=== PATIENT | female | born 1980 | race Caucasian/White ===

== ENCOUNTER 2016-08-07 14:50 | Observation (INO) ==
[2016-08-07] MEDS ORDERED: 0.9 % Sodium Chloride 1,000 ML IVC ONE ×2 (15:06→18:10)
[2016-08-07 15:17] LABS: Hematocrit 34.6 % (35.3-44.9); Hemoglobin 11.4 g/dL (11.5-15.4)
--- NOTE | 2016-08-07 16:45 | Emergency Department Note ---
Disposition Clinical Impression: Vaginal bleeding, Incomplete Disposition: Admitted As Inpatient Condition: Good Referrals: NO,PCP [Primary Care Provider] - Forms: ED Satisfaction Letter Time of Disposition: 18:44 HPI - General Chief complaint: ED Vaginal Bleeding Stated complaint: Possible miscarriage/bleeding, weakness Time Seen by Provider: 08/07/16 15:00 Source: patient Limitations: no limitations Nursing Notes Reviewed: Yes Vital Signs Reviewed: Yes - History of Present Illness HPI Narrative: Patient presents emergency room with complaint of vaginal bleeding and concern for possible spontaneous miscarriage. She was seen here 2 days ago and evaluated for spotting she had laboratory workup done at that time was told that she was a threatened miscarriage at that point. She has never had a miscarriage in the past. She denies any other symptoms or complaints at this time. 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 Location: pelvis Pain Severity: none Pain Scale: 1 Quality: cramping Improves with: none Worsens with: none Associated symptoms: Reports: denies other symptoms Vaginal discharge: bloody Vaginal bleeding: heavy, clots Confirmation of LMP: Yes (10 weeks ago) : yes Number of weeks : 10 OB History - Current : no complications - Related Data Previous Rx's Medication Instructions Recorded Nitrofurantoin (BID) [Macrobid] 100 mg PO BID #14 capsule 08/06/16 Allergies Allergy/AdvReac Type Severity Reaction Status Date / Time No Known Allergies Allergy Verified 08/05/16 22:58 All systems ED: reviewed and negative except as stated. Constitutional: Denies: fever, chills Cardiovascular: Denies: chest pain, palpitations Gastrointestinal: Denies: abdominal pain, nausea Genitourinary: Denies: urgency, dysuria PMH - Past Medical History CURB BUILDER history: Reports: No CURB BUILDER History LMP comments: - Social History Smoking Status: Never smoker Alcohol use: Reports: none Drug use: Reports: none Physical Exam - General Limitations: no limitations General appearance: alert - Cardiovascular Cardiovascular exam: Present: regular rate, normal rhythm, normal heart sounds - Abdominal Exam Abdominal exam: Present: soft, Non-Tender, normal bowel sounds. Absent: tenderness, distention, guarding, rebound, rigidity, Merrill's sign, Rovsing's sign, tenderness at McBurney's Point - Extremities Exam Extremities exam: Present: normal inspection, full ROM - Back Exam Back exam: Present: normal inspection, full ROM - Neurological Exam Neurological exam: Present: alert, oriented X3, CN II-XII intact, normal gait - Psychiatric Psychiatric exam: Present: normal affect, normal mood - Skin Skin exam: Present: warm, dry, intact, normal color Course Course Narrative: Patient seen and examined the time of arrival. See history of present illness. History and repeat evaluation discussed. Patient was seen here several days ago for evaluation of vaginal spotting. She is currently 10 weeks by last menstrual period. She has not had an ultrasound confirmation. She is currently at 007 prior to today. Patient is describing vaginal bleeding this morning with conservative spontaneous miscarriage. Denies any other symptoms or complaints. Denies recent fever chills nausea vomiting or diarrhea. Denies chest measures with irregular rhythm change. Otherwise patient has no other issues prior to today's events. Physical exam is benign lungs are clear heart is regular abdomen is soft. She was hypotensive initial triage repeat blood pressure was 102/64. Fluids and IV access to be obtained. Type and Rh was completed on last evaluation she is a positive. H&H and the serum quantitative evaluation to be completed. Ultrasound ordered for formal study to look for retained products of conception. Pelvic examination be completed urine was completed last time is showing no signs of acute infection disposition patient treatment course evaluation. Patient follows up with Dr. Mauricio as an outpatient has no other symptoms or complaints at this time - Reevaluation(s) Reevaluation #1: Patient to ultrasound at this time. Time: 17:10 Reevaluation #2: Repeat evaluation after ultrasound was completed. Patient's blood pressure and heart rate are concerning. Heart rate is 113 and blood pressure is 89/52. Ultrasound was read as possible retained products of conception or intrauterine clot. Patient is placed onto the oncologist at [facility] physician Dr. Arias. We will discuss the findings with him and recommendation for admission will be reviewed. My concern is the patient will continue to bleed and decompensated. Consultation placed this time. Second bolus of fluids ordered. Patient otherwise has no acute pathology at this time Time: 18:19 Reevaluation #3: Patient was reviewed with the on-call obstetrics physician Dr. Arias. He agreed with my concern about the hypotension and vaginal bleeding in the indeterminate ultrasound. He will admit the patient to their service and obturator this time. Otherwise he had no other recommendations. Patient family were both informed and they are comfortable with this plan. Admission process to be completed. We will continue to monitor here in the emergency room and admission process is completed. Patient to be admitted for what appears to be vaginal bleeding with what appears to be incomplete . Time: 18:43 Vital Signs Temperature 98.4 F 08/07/16 14:54 Pulse Rate 119 08/07/16 14:54 Respiratory Rate 18 08/07/16 14:54 Blood Pressure 74/59 08/07/16 14:54 O2 Sat by Pulse Oximetry 99 08/07/16 14:54 Temperature 98.4 F 08/07/16 14:54 Pulse Rate 89 08/07/16 16:58 Respiratory Rate 16 08/07/16 16:58 Blood Pressure 103/59 08/07/16 16:58 O2 Sat by Pulse Oximetry 98 08/07/16 16:58 OB/Uterine Contractions - MDM Narrative Medical decision making narrative: Vaginal bleeding, spontaneous miscarriage - Medical Records Medical records reviewed: Yes I reviewed the patient's medical records. - Lab Data Lab results reviewed: Yes I reviewed the patient's lab results. Result diagrams: 08/07/16 15:09 Lab Results 08/07/16 08/07/16 Range/Units 15:09 15:09 Hgb 11.4 L (11.5-15.4) g/dL Hct 34.6 L (35.3-44.9) % Beta HCG, Quant 2200 H (0-4) mIU/ml - Radiology Data Radiology results reviewed: Yes I reviewed the patient's radiology results. Ultrasound reviewed showing left-sided ovarian cysts, there is dilation of the uterus with what appears to be either retained products of conception or a large clot in the dependent aspect of the uterus - EKG Data EKG attestation: Yes I reviewed and interpreted this EKG. EKG shows normal: sinus rhythm, axis, intervals, QRS complexes, ST-T waves Rate: normal Rhythm: NSR [place]/QRS: normal When compared to previous EKG there are: previous EKG unavailable Interpretation: normal EKG Attestation Statement - Attestation Attestation: I personally interviewed and examined this patient and my medical decision- making was reviewed with the ED Resident Physician, Dr. Malave. I agree with the documented findings, disposition and treatment plan as described except to the extent set forth below. Patient is a 35-year-old white female, A0 who presents to the emergency department today with complaints of heavy vaginal bleeding at home earlier this afternoon. Patient was evaluated previously in the ED for vaginal spotting and had laboratory evaluation done and was sent home with threatened AB instructions. Patient presents with some mild lower abdominal cramping worse in the left lower quadrant. Patient states prior to arrival she passed a large amount of blood at home but feels like the bleeding has slowed considerably on arrival to the ED. Patient's initial vital signs in triage showed her to be tachycardic and hypotensive she was brought directly back to room IV saline well was established and cardiac care nurse and pulse ox an IV fluids were started. Upon recheck of her blood pressure in the ED at the time fluids were initiated patient's systolic was 109. Labs were drawn and sent. I agree with physical exam findings as documented patient was then sent for pelvic ultrasound to rule out retained products of conception versus ectopic . Repeat Quant today is 2200 which is a drop from her prior hCG levels. Patient does not require RhoGAM. Following fluid administration and improved hemodynamic status patient was taken to ultrasound in imaging is pending at this time. Imaging shows questionable products of conception remain in the uterus. Patient being started on second fluid liter bolus, no heavy bleeding at time of pelvic exam the patient remains hypotensive but improved from arrival. Discussed case with Dr. Arias in [employer] who agreed to admit the patient overnight for continued observation and repeat H&H and possible D&C. Patient received an second fluid liter bolus and will continue to monitor vitals closely.
[2016-08-07 19:58] LABS: Basophils # 0.1 K/mcL (0.0-0.2); Basophils % 0.5 %; Eosinophils % 0.2 %; Hematocrit 26.3 % (35.3-44.9); Hemoglobin 8.5 g/dL (11.5-15.4); Immature Granulocytes % 0.7 % (0-4); Lymphocytes # 1.6 K/mcL (0.6-4.6); Lymphocytes % 14.1 %; Mean Corpuscular HGB Conc 32.3 g/dL (31.6-35.5); Mean Corpuscular Hemoglobin 28.2 pg (28.0-33.3); Mean Corpuscular Volume 87.4 fL (83.0-100.0); Monocytes # 0.6 K/mcL (0.0-1.3); Monocytes % 4.8 %; Neutrophils # 9.2 K/mcL (1.6-8.9); Platelet Count 263 K/mcL (140-400); Red Blood Count 3.01 M/mcL (3.82-4.97); Red Cell Distribution Width 12.4 % (11.5-14.5); Segmented Neutrophils % 79.7 %
[2016-08-07 20:03] LABS: INR 1.3; Prothrombin Time 14.6 Seconds (9.4-12.1)
[2016-08-07 20:06] LABS: Activated Partial Thrombo Time 25.3 Seconds (26.0-36.0)
[2016-08-07 20:13] LABS: BUN/Creatinine Ratio 19 (6-26); Blood Urea Nitrogen 11 mg/dL (7-20); Carbon Dioxide 21 mEq/L (19-29); Chloride 112 mEq/L (98-109); Glucose 116 mg/dL (70-99); Osmolality,Calculated 288 (280-300); Potassium 3.7 mEq/L (3.5-4.5); Sodium 139 mEq/L (136-145); eGFR For African Americans > 60 (> 60); eGFR For Non-African Americans > 60 (> 60)
[2016-08-07 20:20] LABS: Calcium 7.6 mg/dL (8.6-10.8)
--- NOTE | 2016-08-07 20:31 | OB/GYN History & Physical ---
Date of Encounter: 08/07/16 Time of Encounter: 20:29 Assessment and Plan (1) Anemia Current visit: Yes Status: Acute Risk and benefits of vacuum D&E were discussed. We will proceed with transfusion. Qualifiers: Anemia type: other cause Other causes of anemia: acute posthemorrhagic Qualified Code(s): D62 - Acute posthemorrhagic anemia (2) Incomplete Current visit: Yes Status: Acute Risks and benefits of vacuum D&E were discussed. (3) Vaginal bleeding Current visit: Yes Status: Acute History of Present Illness Chief complaint: Vaginal bleeding HPI: Ms. Jean is a 35 year old female 8 para 6 white female who is admitted through the emergency room with vaginal bleeding and an unstable hemoglobin. Her abdomen ultrasound shows incomplete miscarriage. Her hemoglobin was dropped 5 g of the last 6 hours. Risk and benefits of vacuum D& E were discussed. Past Med Surg Social Fam HX - Past Medical History Medical history: non-contributory Psychiatric history: no psych history - Social History Smoking Status: Never smoker Smokeless Tobacco Status: No Alcohol use: none Drug use: none Obstetrical History - Pregnancies : 8 Para: 6 Term: 1 Medications and Allergies Nitrofurantoin (BID) [Macrobid] 100 mg PO BID #14 capsule 08/06/16 [Rx] Allergies No Known Allergies Allergy (Verified 08/05/16 22:58) Review of System OB All systems PM: reviewed and no additional remarkable complaints except as stated - Genitourinary Genitourinary: amenorrhea - Menstruation Menstruation: amenorrhea Exam - Vital Signs Vital signs: Initial Vital Signs Temp Pulse Resp BP Pulse Ox 98.4 F 119 18 74/59 99 08/07/16 14:54 08/07/16 14:54 08/07/16 14:54 08/07/16 14:54 08/07/16 14:54 - Constitutional Constitutional: well developed, well nourished - HEENT HEENT: Normocephaly - Neck Neck exam: full ROM - Lungs Respiratory exam: CTAB - Cardiovascular Cardiovascular exam: RRR - Extremities Extremities exam: full ROM Deep Tendon Reflex Grade: 2+ Normal - Vulva Vulva: bilateral: normal - Comments Comments: Per emergency room physician, large amount of vaginal bleeding and pooling is noted in the vagina Results Result Diagrams: 08/07/16 19:49 08/07/16 19:49 Abnormal lab results WBC 11.5 K/mcL (4.3-11.1) H 08/07/16 19:49 RBC 3.01 M/mcL (3.82-4.97) L 08/07/16 19:49 Hgb 8.5 g/dL (11.5-15.4) L D 08/07/16 19:49 Hct 26.3 % (35.3-44.9) L 08/07/16 19:49 Neutrophils # 9.2 K/mcL (1.6-8.9) H 08/07/16 19:49 PT 14.6 Seconds (9.4-12.1) H 08/07/16 19:49 APTT 25.3 Seconds (26.0-36.0) L 08/07/16 19:49 Chloride 112 mEq/L (98-109) H 08/07/16 19:49 Glucose 116 mg/dL (70-99) H 08/07/16 19:49 Calcium 7.6 mg/dL (8.6-10.8) L D 08/07/16 19:49 Beta HCG, Quant 2200 mIU/ml (0-4) H 08/07/16 15:09 All other labs normal.
--- NOTE | 2016-08-07 20:50 | Anesthesia Evaluation PreOp ---
Date of Encounter: 08/07/16 Time of Encounter: 20:47 - Past History Planned Operation: Suction D&C Cardiac History: Other (acute anemia) Pulmonary History: Denies Any Significant HX INFORMATION SYSTEMS MANAGER History: Denies Any Significant HX Other Medical History: Denies Any Significant HX Anesthesia History: No Prior Anesthetic Complications, Past Anesthesia Alcohol Use: none Drug use: none Medications and Allergies Nitrofurantoin (BID) [Macrobid] 100 mg PO BID #14 capsule 08/06/16 [Rx] Allergies No Known Allergies Allergy (Verified 08/05/16 22:58) - Meds/Allergy Pre-op Review Medications Reviewed: Yes Allergies Reviewed: Yes Beta Blockers on Current Med List: No Anesthesia Results - Labs 08/07/16 19:49 08/07/16 19:49 Anesthesia Exam Vital Signs/O2 Sat/Glucose, Most Current Pulse Resp BP Pulse Ox 08/07/16 19:57 95 14 109/57 100 08/07/16 16:58 89 16 103/59 98 Height: 1.63 Weight: 54 NPO (# of Hours): >8 - HEENT Pupil (Motor): Pupils equal, EOMI Mallampati: II Teeth: Normal Oral Opening: Greater than 3 - INFORMATION SYSTEMS MANAGER LOC: Oriented INFORMATION SYSTEMS MANAGER Motor: Normal RUE, Normal LUE, Normal RLE, Normal LLE, Normal Face INFORMATION SYSTEMS MANAGER Sensory: Normal: RUE, LUE, RLE, LLE, Face - Cardiac Rhythm: Regular Murmur: None - Pulmonary Breath Sounds: bilateral Clear Respiratory Effort: Symmetrical Anesthesia Assess/Plan ASA Score: 2 (This case is being delayed for npo status and pt stability. Pt states she had a large amount of bleeding this morning. She denies feeling dizzy or passing out. She denies any active bleeding since 13:00 (her arrival to ED). artificial fly tier noticed a small amount of dried, "old" blood on the pt's tucker during transfer. Pt initial Hb was 11.1 but has dropped to 8.5 and pt was hypotensive and tachycardic upon arrival to ED. However, pt was treated with and responded to 2 L's crystalloid and has been normotensive with a normal hr x 4 hours. Pt does not appear pale or weak and has normal mentation. The confounding factor is pt was served and ate a full dinner at 20:30. If patient had clinical sx's or diagnostic signs of impending shock then we would proceed to the OR immediately. However, pt is stable and does not exhibit any significant sx's. In lieu of this, I prefer to take the conservative approach and delay surgery until 04:30 IAW ASA NPO guidelines. This decision will change immediately if any of the above sx's or parameters worsten. I have discussed my concerns with Dr. Arias and he agrees. He communicates that should our patient remain stable overnight then surgery will be performed tomorrow at some point.) , E Modified [place] Scale for Level of Consciousness: Cooperative, oriented, and tranquil Anesthetic Plan: General Monitoring Plan: Standard Monitors Recovery Plan: PACU
[2016-08-07] MEDS ORDERED: Methylergonovine 0.2 MG/ML AMPUL IM ONE (20:56)
[2016-08-07] MEDS ORDERED: *HR* Propofol 200 MG/20 ML VIAL IVP ONE (20:57)
[2016-08-07] MEDS ORDERED: *HR* FentaNYL (PF) 100 MCG/2 ML VIAL ONE (20:57)
[2016-08-07] MEDS ORDERED: Ondansetron 4 MG/2 ML VIAL ONE (20:58)
[2016-08-07] MEDS ORDERED: Dexamethasone 4 MG/ML VIAL ONE (20:58)
[2016-08-07] MEDS ORDERED: Lidocaine -MPF 2% 2 ML VIAL ONE (20:58)
[2016-08-08 05:01] LABS: Basophils # 0.1 K/mcL (0.0-0.2); Basophils % 0.6 %; Eosinophils # 0.1 K/mcL (0.0-0.6); Eosinophils % 1.1 %; Hematocrit 24.5 % (35.3-44.9); Hemoglobin 8.1 g/dL (11.5-15.4); Immature Granulocytes % 0.2 % (0-4); Lymphocytes # 2.8 K/mcL (0.6-4.6); Mean Corpuscular HGB Conc 33.1 g/dL (31.6-35.5); Mean Corpuscular Volume 87.8 fL (83.0-100.0); Mean Platelet Volume 10.1 fL (9.4-12.4); Monocytes # 0.9 K/mcL (0.0-1.3); Monocytes % 8.6 %; Neutrophils # 6.1 K/mcL (1.6-8.9); Platelet Count 240 K/mcL (140-400); Red Blood Count 2.79 M/mcL (3.82-4.97); Red Cell Distribution Width 12.4 % (11.5-14.5); Segmented Neutrophils % 61.5 %
--- NOTE | 2016-08-08 07:53 | OB/GYN Progress Note ---
Date of Encounter: 08/08/16 Time of Encounter: 07:45 - Assessment and Plan (1) Anemia Current Visit: Yes Status: Acute Qualifiers: Anemia type: other cause Other causes of anemia: acute posthemorrhagic Qualified Code(s): D62 - Acute posthemorrhagic anemia (2) Incomplete Current Visit: Yes Status: Acute will schedule patient for suction D&C Subjective - Subjective Interval history: Patient is asymptomatic denies lightheadedness dizziness. Patient has had minimal bleeding since arriving to the floor. Hemoglobin stable at 8.1 this morning. Ultrasound performed last night did show products conception in the lower uterine segment she states she is not had significant amount of bleeding since the ultrasound so I doubt that she has past anything. Recommended we proceed with a suction D&C this am Objective - Vital Signs Latest vital signs: Vital Signs Temp Pulse Pulse Resp BP Pulse Ox 08/08/16 04:30 98.0 F 80 72 14 103/64 100 08/07/16 23:20 98.0 F 80 15 107/65 100 08/07/16 22:15 98.4 F 92 90 14 108/69 100 08/07/16 21:01 16 114/73 Intake and Output 08/07/16 08/07/16 08/08/16 15:59 23:59 07:59 Intake Total 1000 / 1999 0 / 0 Output Total 300 / 300 Balance 999 / 1999 -300 / -300 Intake: IV Fluids 1000 / 1000 0.9 % Sodium Chloride 1, 1000 / 1000 000 ML @ 3750 mls/hr IVC .Q16M ONE Rx#:[id number] Oral 0 / 0 Output: Urine 300 / 300 Other: Weight 56.563 kg - I&O's I&O's: Intake & Output 08/05/16 08/06/16 08/07/16 08/08/16 23:59 23:59 23:59 23:59 Intake Total 1000 / 2000 0 / 0 Output Total 300 / 300 Balance 999 / 1999 -300 / -300 Weight 56.563 kg - Exam Lungs: bilateral: normal Chest: Normal S1, Normal S2 Abdomen: Present: soft Comments: no active bleeding noted - Labs Labs: Abnormal lab results RBC 2.79 M/mcL (3.82-4.97) L 08/08/16 04:49 Hgb 8.1 g/dL (11.5-15.4) L 08/08/16 04:49 Hct 24.5 % (35.3-44.9) L 08/08/16 04:49 PT 14.6 Seconds (9.4-12.1) H 08/07/16 19:49 APTT 25.3 Seconds (26.0-36.0) L 08/07/16 19:49 Chloride 112 mEq/L (98-109) H 08/07/16 19:49 Glucose 116 mg/dL (70-99) H 08/07/16 19:49 Calcium 7.6 mg/dL (8.6-10.8) L D 08/07/16 19:49 Beta HCG, Quant 2200 mIU/ml (0-4) H 08/07/16 15:09 Consult Discharge Plan - Plan Referrals: NO,PCP [Primary Care Provider] -
[2016-08-08] MEDS ORDERED: Ringers Solution, Lactated 1,000 ML IVC SCH ×2 (08:00→11:00)
[2016-08-08] MEDS ORDERED: *HR* Propofol 200 MG/20 ML VIAL IVP ONE (08:22)
[2016-08-08] MEDS ORDERED: *HR* Midazolam HCl 2 MG/2 ML VIAL ONE (08:22)
[2016-08-08] MEDS ORDERED: *HR* FentaNYL (PF) 100 MCG/2 ML VIAL ONE (08:22)
[2016-08-08] MEDS ORDERED: Ondansetron 4 MG/2 ML VIAL ONE (08:29)
[2016-08-08] MEDS ORDERED: Dexamethasone 4 MG/ML VIAL ONE (08:29)
[2016-08-08] MEDS ORDERED: Lidocaine -MPF 2% 5 ML VIAL INFILT ONE (08:29)
[2016-08-08] MEDS ORDERED: *HR* Phenylephrine 10 MG/ML VIAL ONE (09:02)
--- NOTE | 2016-08-08 09:19 | Operative Note ---
Date of procedure: 08/08/16 Pre-op diagnosis: missed Post-op diagnosis: same Procedure: Suction dilatation and curettage Complications: none Anesthesia: YESENIAA Surgeon: Bernardo Pizarro Estimated blood loss (cc): 50 Specimen: Products of conception Condition: stable Disposition: other (Labor and delivery recovery) Procedure in Detail: Patient is a 35-year-old 8 para 6 at approximately 8 weeks who presented to the emergency room complaining of heavy vaginal bleeding. Patient states she started bleeding yesterday afternoon and passed what looked like a fetus in a gestational sac. Patient came to the ER actively bleeding. Patient continued to bleed with an approximate 6 hours to finally get her worked up. Patient had lost approximately 5 g of hemoglobin from admission to the time she was evaluated by the on-call physician. Bleeding had significantly slowed down in the ER and said her so anesthesia was uncomfortable proceeding on with a D&C since she was not actively bleeding. Patient was symptomatically and orthostatic but that did resolve with IV hydration. Patient is a Gnosticist and is refusing blood at this time. Hemoglobin this morning was 8.1. Ultrasound did show either clot or some retained products still in the lower uterine segment and it was recommended we proceed on with a D&C. Procedure: Patient was taken the operating room where general anesthesia was found be adequate. She was placed in the dorsal lithotomy position prepped and draped in usual fashion. Timeout was sent. A weighted speculum was placed in the vagina anterior lip of the cervix was grasped with an Allis clamp. There was a large clot sitting at the os and the os was already dilated. Using a #7 curved curet and suction curettage performed removing clot and what appeared to be some products of conception. We did do a sharp curette with a #5 curet removing a little bit more tissue made a second pass with a #8 curette removing the remaining clots. 0.2 mg Methergine was given intramuscular intraoperatively to help with bleeding. No other products was seen in the procedure was terminated. All instruments were removed from the vagina patient was taken to recovery in stable condition. Patient will be observed in recovery from finger to the floor. If stable after couple hours until discharge home.
[2016-08-08] MEDS ORDERED: Ondansetron 4 MG/2 ML VIAL IVP PRN (09:33)
[2016-08-08] MEDS ORDERED: *HR* HYDROmorphone (PF) 1 MG/ML SYRINGE IVP PRN (09:33)
--- NOTE | 2016-08-08 10:29 | Anesthesia Evaluation Post Op ---
Date of Encounter: 08/08/16 Time of Encounter: 10:27 - Vital Signs Vital Signs: 97/66 88 16 100% - Lungs Lungs: Clear Ascult./Percussion - Airway Airway: Non-obstructed - Cardiovascular Regular Rate - Mental Status Mental Status: Alert & Oriented, Answers Appropriately - Pain Pain Scale: 2 Pain Scale used: Numeric (1 - 10) - Nausea Vomiting Nausea Vomiting: Not Present - Hydration Hydration: NPO - Discharge PostOp Status: Transfer Patient to floor (fully awake, VSS, no bleeding, to floor)
[2016-08-08] MEDS ORDERED: Ibuprofen 800 MG TABLET PO PRN (11:00)
--- NOTE | 2016-08-08 11:32 | Electrocardiograph Report ---
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
--- NOTE | 2016-08-08 12:22 | Discharge Summary ---
Date of Encounter: 08/08/16 Time of Encounter: 12:10 - Discharge Diagnosis (1) Anemia Priority: Secondary (Status post suction dilatation curettage) Status: Acute Qualifiers: Anemia type: other cause Other causes of anemia: acute posthemorrhagic Qualified Code(s): D62 - Acute posthemorrhagic anemia (2) Incomplete Priority: Secondary Status: Acute (3) History of dilatation and curettage Priority: Primary Status: Acute Comments: We will discharge home with prescription for Methergine 0.2 mg 1 every 8 as needed for bleeding, iron sulfate 325 mg 1 twice a day and Motrin 800 mg 1 every 8 hours as needed for pain - Discharge Medications Home Medications: Nitrofurantoin (BID) [Macrobid] 100 mg PO BID #14 capsule 08/06/16 [Rx] Allergies/Adverse Reactions: Allergies No Known Allergies Allergy (Verified 08/05/16 22:58) Data Procedures and tests throughout hospitalization: Laboratory Tests 08/08/16 04:49 WBC 9.9 RBC 2.79 L Hgb 8.1 L Hct 24.5 L MCV 87.8 MCH 29.0 MCHC 33.1 RDW 12.4 Plt Count 240 MPV 10.1 Immature Gran % 0.2 Seg Neutrophils % 61.5 Lymphocytes % 28.0 Monocytes % 8.6 Eosinophils % 1.1 Basophils % 0.6 Neutrophils # 6.1 Lymphocytes # 2.8 Monocytes # 0.9 Eosinophils # 0.1 Basophils # 0.1 Labs on day of discharge: Labs from last 24 hours 08/08/16 04:49 WBC 9.9 RBC 2.79 L Hgb 8.1 L Hct 24.5 L MCV 87.8 MCH 29.0 MCHC 33.1 RDW 12.4 Plt Count 240 MPV 10.1 Immature Gran % 0.2 Seg Neutrophils % 61.5 Lymphocytes % 28.0 Monocytes % 8.6 Eosinophils % 1.1 Basophils % 0.6 Neutrophils # 6.1 Lymphocytes # 2.8 Monocytes # 0.9 Eosinophils # 0.1 Basophils # 0.1 Date of admission: 08/07/16 20:25 Primary care physician: PCP NO Discharging clinician: Bernardo Pizarro Anticipated date of discharge: 08/08/16 - Patient Status Disposition: Home, Self-Care Condition: Good Functional capacity at discharge: independent ambulation Overall status at discharge: patient is progressing back to baseline - Discharge Instructions Follow Up With: NO,PCP [Primary Care Provider] - Bernardo Pizarro DO [Partnered Physician] - - Diet and Activity Activity: increase activity as tolerated Diet: advance to your usual diet Hospital 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 Patient passed gestational sac with fetus at home but continued to bleed heavy. Patient was evaluated in the ER patient's hemoglobin dropped 5 g workup. Patient became symptomatic they were getting ready to do a D&C and a half the patient was given a tray since the bleeding had slowed down anesthesia was not comfortable proceeding on with surgery. Patient's hemoglobin was 8.1 this morning with the ultrasound showed what appeared to be some retained products recommended D&C. Patient did undergo a suction dilatation and curettage without any competitions they did appear to be products in the specimen. Patient's surgery went without any difficulty she was taken back to the floor to recover. She is asymptomatic not complaining of any lightheadedness or dizziness and did not want any blood due to restorationist beliefs. Patient will be discharged home with prescription for iron sulfate 325 mg 1 tablet twice a day, Motrin 800 mg 1 every 8 hours as needed for pain, and Methergine 0.2 mg 1 every 8 hours as needed for bleeding. Patient will follow-up in the office in 3 weeks. Patient's condition at the time of discharge was stable. Time Attestation: Total time spent providing and/or coordinating discharge services: Exam - Constitutional Vitals: Temp Pulse Resp BP Pulse Ox 98 F 70 16 108/73 100 08/08/16 11:45 08/08/16 11:45 08/08/16 11:45 08/08/16 11:45 08/08/16 11:45 General appearance IM: A&O X 3, no acute distress - Respiratory Respiratory exam: Present: CTAB - Cardiovascular Cardiovascular exam IM: Present: RRR - GI/Abdominal GI/Abdominal exam IM: normal bowel sounds - VTE Reasons for not Prescribing Prophylaxis: Treatment not Indicated - Low risk for VTE Documentation of Mechanical Device: Intermittent pneumatic compression device
[2016-08-08 12:47] VITALS: BP 103/61
[2016-08-08] MEDS ORDERED: Methylergonovine 0.2 MG/ML AMPUL IM ONE (13:39)
== END 2016-08-08 13:40 | disposition home or self-care (01) ==
LOC: 1NENUOBS 14:50 → EMEROO 14:50 → 1NENUOBS 21:03
PROVIDERS: ADMIT Obstetrics & Gynecology; ATTEND Obstetrics & Gynecology